=== PATIENT | female | born 1940 | race Native Hawaiian/Other Pacific Islander ===

== ENCOUNTER 2016-10-14 13:51 | Outpatient (CLI) | payer OTHER ==
[2016-10-14 14:10] LABS: PLATELET COUNT 187 K/uL (152-353)
[2016-10-14 15:11] LABS: POTASSIUM 3.7 mmol/L (3.6-5.2); SODIUM 138 mmol/L (136-145)
== END 2016-10-14 14:51 | disposition home or self-care (01) ==
LOC: LAB 13:51
PROVIDERS: Nurse Practitioner Family
DX: E11.9 Type 2 diabetes mellitus without complications (principal); I10 Essential (primary) hypertension; E03.8 Other specified hypothyroidism
CPT/HCPCS: 80053; 80061; 83036; 84439; 84443; 85027

== ENCOUNTER 2017-01-05 10:21 | Outpatient (CLI) | payer OTHER | END 2017-01-05 19:07 | disposition home or self-care (01) | LOC: MAMMO 10:21 | DX: Z12.31 Encounter for screening mammogram for malignant neoplasm of breast (principal) | CPT/HCPCS: G0202-TC ==

== ENCOUNTER 2017-04-14 12:51 | Outpatient (CLI) | payer OTHER ==
[2017-04-14 16:21] LABS: PLATELET COUNT 207 K/uL (152-353)
[2017-04-14 16:44] LABS: POTASSIUM 4.3 mmol/L (3.6-5.2); SODIUM 139 mmol/L (136-145)
== END 2017-04-14 13:55 | disposition home or self-care (01) ==
LOC: LAB 12:51
PROVIDERS: Nurse Practitioner Family
DX: Z00.00 Encounter for general adult medical examination without abnormal findings (principal); E78.00 Pure hypercholesterolemia, unspecified
CPT/HCPCS: 80053; 80061; 83036; 84436; 84443; 85027

== ENCOUNTER 2019-03-27 15:11 | Outpatient (CLI) | payer OTHER | END 2019-03-27 23:42 | disposition home or self-care (01) | LOC: LAB 15:11 | DX: E11.9 Type 2 diabetes mellitus without complications (principal); Z12.11 Encounter for screening for malignant neoplasm of colon; Z79.899 Other long term (current) drug therapy | CPT/HCPCS: 82272 ==

== ENCOUNTER 2019-04-02 14:37 | Outpatient (CLI) | payer OTHER | END 2019-04-02 22:20 | disposition home or self-care (01) | LOC: LAB 14:37 | DX: E11.9 Type 2 diabetes mellitus without complications (principal); Z12.11 Encounter for screening for malignant neoplasm of colon; R19.5 Other fecal abnormalities | CPT/HCPCS: 82272 ==

== ENCOUNTER 2019-04-08 08:17 | Outpatient (CLI) | payer OTHER | END 2019-04-09 05:45 | disposition home or self-care (01) | LOC: LAB 08:17 | DX: Z12.11 Encounter for screening for malignant neoplasm of colon (principal); E11.9 Type 2 diabetes mellitus without complications; Z79.899 Other long term (current) drug therapy | CPT/HCPCS: 82272 ==

== ENCOUNTER 2019-04-19 10:10 | Outpatient (CLI) | payer OTHER ==
[2019-04-19 10:38] LABS: POTASSIUM 3.9 mmol/L (3.6-5.2)
[2019-04-19 16:57] LABS: PLATELET COUNT 357 K/uL (152-353)
== END 2019-04-19 23:44 | disposition home or self-care (01) ==
LOC: LABW 10:10
PROVIDERS: Physician Assistant
DX: R19.09 Other intra-abdominal and pelvic swelling, mass and lump (principal); R63.4 Abnormal weight loss
CPT/HCPCS: 36415; 80048; 85027; Q9963

== ENCOUNTER 2019-04-29 14:50 | Outpatient (CLI) | payer OTHER | END 2019-04-29 17:00 | disposition home or self-care (01) | LOC: MAMMO 14:50 | DX: Z12.31 Encounter for screening mammogram for malignant neoplasm of breast (principal); Z13.820 Encounter for screening for osteoporosis; N95.8 Other specified menopausal and perimenopausal disorders ==

== ENCOUNTER 2019-05-03 15:11 | Outpatient (CLI) | payer OTHER | END 2019-05-03 21:02 | disposition home or self-care (01) | LOC: LAB 15:11 | DX: N30.80 Other cystitis without hematuria (principal) | CPT/HCPCS: 87077; 87086; 87088; 87186 ==

== ENCOUNTER 2019-05-14 10:20 | Outpatient (CLI) | payer OTHER | END 2019-05-14 22:54 | disposition home or self-care (01) | LOC: MRI 10:20 | DX: R19.01 Right upper quadrant abdominal swelling, mass and lump (principal); N64.59 Other signs and symptoms in breast; R92.8 Other abnormal and inconclusive findings on diagnostic imaging of breast | CPT/HCPCS: A9576 ==

== ENCOUNTER 2021-04-26 11:34 | Outpatient (CLI) | payer OTHER | END 2021-04-26 19:11 | disposition home or self-care (01) | LOC: LAB 11:34 | PROVIDERS: ATTEND Internal Medicine | DX: U07.1 COVID-19 (principal); R05 Cough; R52 Pain, unspecified; R53.83 Other fatigue; Z20.822 Contact with and (suspected) exposure to COVID-19 | CPT/HCPCS: 87635; G2023; U0003 ==

== ENCOUNTER 2021-04-29 21:57 | Emergency (ER) | payer OTHER ==
[~2021-04-29] VITALS: Ht 160 cm; Wt 68.0 kg
[2021-04-29 22:59] LABS: PLATELET COUNT 143 K/uL (152-353)
[2021-04-29 23:08] LABS: POTASSIUM 3.9 mmol/L (3.6-5.2); SODIUM 134 mmol/L (136-145)
[2021-04-30 03:10] VITALS: BP 114/50; TEMP 98.7
== END 2021-04-30 03:10 | disposition home or self-care (01) ==
LOC: ED 21:57
PROVIDERS: Emergency Medicine
DX: U07.1 COVID-19 (principal); J12.82 Pneumonia due to coronavirus disease 2019; E86.0 Dehydration; R94.4 Abnormal results of kidney function studies
CPT/HCPCS: 80053; 84484; 85027; 85379; 93005; 96360; 96365; 96375; 99284; J0696; J1100

== ENCOUNTER 2021-05-10 12:04 | Outpatient (CLI) | payer OTHER | END 2021-05-10 21:16 | disposition home or self-care (01) | LOC: RAD 12:04 | PROVIDERS: ATTEND Internal Medicine | DX: U07.1 COVID-19 (principal) ==

== ENCOUNTER 2023-03-28 09:17 | Emergency (ER) | payer OTHER ==
[~2023-03-28] VITALS: Ht 160 cm; Wt 72.6 kg
[2023-03-28 09:53] LABS: PLATELET COUNT 241 K/uL (152-353)
[2023-03-28 10:06] LABS: POTASSIUM 3.8 mmol/L (3.6-5.2); SODIUM 135 mmol/L (136-145)
[2023-03-28 13:25] VITALS: TEMP 97
[2023-03-28 13:35] VITALS: BP 124/70
== END 2023-03-28 13:35 | disposition short-term general hospital (02) ==
LOC: ED 09:17
PROVIDERS: Family Medicine
DX: K56.609 Unspecified intestinal obstruction, unspecified as to partial versus complete obstruction (principal); R10.9 Unspecified abdominal pain
CPT/HCPCS: 36415; 80053; 81002; 83690; 84484; 85027; 93005; 96361; 96365; 96375; 99284; J2405; J2543